=== PATIENT | male | born 1955 | race Caucasian/White ===

== ENCOUNTER 2017-10-29 10:33 | Observation (INO) | payer OTHER ==
[~2017-10-29] VITALS: Ht 182.9 cm; Wt 107.6 kg
[~2017-10-29 10:33] MED LIST: ANALGESIC325 M1 PO; ASPIRIN325 MG PO; BLOOD PRESSURE; ELIQUIS5 MG PO; SOTALOL80 MG PO
[2017-10-29 11:47] LABS: HEMATOCRIT 46.1 % (38.0-50.0); MCH 32.3 PG (29.0-34.0); MCHC 34.7 G/DL (30.0-36.0); MCV 92.9 FL (86-99); PLATELET COUNT 194 K/uL (156-360); RBC DIS.WIDTH-CV 12.4 % (11.8-14.6); RBC DIS.WIDTH-SD 42.3 % (39-53); RED BLOOD COUNT 4.96 M/uL (4.00-5.50); WHITE BLOOD COUNT 4.9 K/uL (4.1-10.2)
[2017-10-29 12:00] LABS: CHLORIDE 105 mEq/L (99-109); POTASSIUM 4.1 mEq/L (3.7-5.4); SODIUM 140 mEq/L (136-147)
[2017-10-29 12:02] LABS: GLUCOSE 91 mg/dL (70-99)
[2017-10-29 12:06] LABS: CREATININE 1.1 mg/dL (0.6-1.3); GFR ESTIMATE (CALCULATED) > 59 mL/min/ (58.99-99999); UREA NITROGEN (BUN) 14 mg/dL (9-23)
[2017-10-29 12:10] LABS: TROP-I INTERPRETATION NEGATIVE; TROPONIN-I < 0.01 ng/mL (0.0-0.30)
[2017-10-29 14:55] LABS: TROP-I INTERPRETATION NEGATIVE; TROPONIN-I < 0.01 ng/mL (0.0-0.30)
[2017-10-29 17:14] VITALS: BP 135/78
[2017-10-29 19:00] VITALS: BP 136/82
[2017-10-29 19:10] LABS: TROP-I INTERPRETATION NEGATIVE; TROPONIN-I < 0.01 ng/mL (0.0-0.30)
[2017-10-30] VITALS: BP 125/79
[2017-10-30 01:18] LABS: TROP-I INTERPRETATION NEGATIVE; TROPONIN-I < 0.01 ng/mL (0.0-0.30)
[2017-10-30 06:06] LABS: HEMATOCRIT 44.8 % (38.0-50.0); HEMOGLOBIN 15.1 G/DL (12.5-16.6); MCH 31.3 PG (29.0-34.0); MCHC 33.7 G/DL (30.0-36.0); MCV 92.8 FL (86-99); PLATELET COUNT 186 K/uL (156-360); RBC DIS.WIDTH-CV 12.4 % (11.8-14.6); RBC DIS.WIDTH-SD 42.5 % (39-53); RED BLOOD COUNT 4.83 M/uL (4.00-5.50)
[2017-10-30 06:42] LABS: ALBUMIN 4.1 G/DL (3.2-4.8); ALKALINE PHOSPHATASE 60 IU/L (3-129); ALT (GPT) 23 IU/L (3-49); AST (GOT) 21 IU/L (2-34); CHLORIDE 105 MEQ/L (99-109); CREATININE 1.2 MG/DL (0.6-1.3); GFR ESTIMATE (CALCULATED) > 59 mL/min/ (58.99-99999); GLUCOSE 96 mg/dL (70-99); HDL CHOLESTEROL 37 MG/DL (Desirable>=40); LDL CHOLESTEROL 111 mg/dL (Desirable<100); NON-HDL CHOLESTEROL 121 mg/dL (Desirable<160); POTASSIUM 4.3 MEQ/L (3.7-5.4); SODIUM 141 MEQ/L (136-147); TOTAL CHOLESTEROL 158 mg/dL (Desirable<200); TOTAL PROTEIN 6.2 G/DL (6.4-8.3); TRIGLYCERIDES 50 MG/DL (Normal: <150); UREA NITROGEN (BUN) 13 mg/dL (9-23)
[2017-10-30 08:00] VITALS: BP 130/84
[2017-10-30] MEDS ORDERED: ASPIR-LOW81 MG PO (10:22)
[2017-10-30] MEDS ORDERED: ATORVASTATIN CA40 MG PO (10:22)
== END 2017-10-30 11:08 | disposition home or self-care (01) ==
LOC: EME 10:33 → EDOF 15:41 → ENRESERV 15:43 → 5WEST 16:41 → ENPENDDIS 10-30 10:33 → 5WEST 10-30 11:08
PROVIDERS: Emergency Medicine; Hospitalist
DX: R07.9 Chest pain, unspecified (principal); I48.0 Paroxysmal atrial fibrillation; Z79.01 Long term (current) use of anticoagulants; Z98.890 Other specified postprocedural states; Z88.0 Allergy status to penicillin; Z82.49 Family history of ischemic heart disease and other diseases of the circulatory system
CPT/HCPCS: 71046; 71275; 80048; 80053; 80061; 83036; 84484; 85027; 93005; 99281; 99285; G0378; S0028